=== PATIENT | male | born 1950 | race Caucasian/White ===

== ENCOUNTER → 2019-01-25 | Day surgery (SDC) | payer MEDICARE ==
--- NOTE | 2019-01-21 14:45 | Diagnostic Imaging Report ---
Chest, 2 views, 01/21/2019. History: Preop, cyst removal. Comparison: None available. Findings: The cardiomediastinal silhouette and pulmonary vasculature are within normal limits. There is tortuosity of the descending thoracic aorta. The lungs are clear without evidence of consolidation or pleural effusion. Right shoulder prosthesis is present. Degenerative changes are present throughout the thoracic spine. There are no acute osseous or soft tissue abnormalities. Impression: No acute cardiopulmonary abnormality. Signed by: Jarvis Mercedes on 01/21/2019 2:42 PM
[~2019-01-25] MED LIST: BUPIVACAINE 0.25% 30ML SDV INJ ONE; CEFAZOLIN SOD 1 GM/NS 50ML 100 ML IV ONE; DEXAMETHASONE SOD PHOS INJ 4 MG/ML VIAL ONE; FENTANYL CITRATE/PF 100MCG/2 ML INJ ONE; INSULIN REGULAR, HUMAN 100 UNIT/1 ML 3ML VIAL ONE; LIDOCAINE HCL 2% LOCAL INJ 5 ML SDV VIAL INJ ONE; METFORMIN HCL500 MG PO; MIDAZOLAM HCL 2 MG/2 ML VIAL ONE; ONDANSETRON HCL INJ 2MG/ML 2ML 2 MG/ML VIAL ONE; PROPOFOL IV EMULSION 10 MG/ML 20 ML VIAL ONE; SEVOFLURANE INHAL SOLN 250 ML PEN BTL ONE
--- OUTSIDE RECORDS SUMMARY | 2019-01-25 08:53 | XMS REPORT ---
[facility] Address Unknown Phone Unavailable Care Team Providers Care College Administrator Name Role Phone Francy GARCIA Unavailable Unavailable Payers Payer Name Policy Type Policy Number Effective Date Expiration Date Problems This patient has no known problems. Allergies, Adverse Reactions, Alerts Allergy Name Allergy Type Status Severity Reaction(s) Onset Date Inactive Date Treating Clinician Comments No Known Allergies DA Active U 2017-09-11 00:00:00 Medications This patient has no known medications. Results Test Description Test Time Test Comments Text Results Atomic Results Result Comments CHEST 2 VIEWS 2019-01-21 14:41:00 [place] [address] Patient Name: FE LEOS MR #: [id number] : 1950 Age/Sex: 69/M Req #: [id number] Adm Physician: Ordered by: JACKSON GARCIA MD Report #: [id number] Location: OR Room/Bed: Procedure: [id number] DX/CHEST 2 VIEWS Exam Date: 01/21/19 Exam Time: 1410 REPORT STATUS: Signed Chest, 2 views, 01/21/2019. History: Preop, cyst removal. Comparison: None available. Findings: The cardiomediastinal silhouette and pulmonary vasculature are within normal limits. There is tortuosity of the descending thoracic aorta. The lungs are clear without evidence of consolidation or pleural effusion. Right shoulder prosthesis is present. Degenerative changes are present throughout the thoracic spine. There are no acute osseous or soft tissue abnormalities. Impression: No acute cardiopulmonary abnormality. Signed by: Jarvis Mercedes on 01/21/2019 2:42 PM Dictated By: JARVIS MERCEDES MD [id number] Transcribed By: ADALID on 01/21/19 1442 COPY TO: JACKSON GARCIA MD
--- NOTE | 2019-01-25 15:09 | Operative Report ---
DATE OF PROCEDURE: 01/25/2019 SURGEON: Gerardo Restrepo MD PREOPERATIVE DIAGNOSIS: Infected back mass. POSTOPERATIVE DIAGNOSIS: Infected back mass. PREOPERATIVE INDICATION: Remove disease, prevent septic complications. PROCEDURE: Wide local excision of an infected back mass, 6 cm in size. ANESTHESIA: General. POLICE RESERVES COMMANDER: Emiliano Servin, surgical garment assembler. FLUIDS: As per anesthesia. ESTIMATED BLOOD LOSS: 25 mL. DRAINS: None. COMPLICATION: None. SPECIMEN: 6 cm back mass. GRAFTS: None. FINDINGS: Infected 6 cm cystic mass in the back. PROCEDURE IN DETAIL: The patient was brought to the operating room and was intubated under general endotracheal anesthesia. He was positioned prone with all pressure points were appropriately padded. A preprocedure pause was performed identifying the patient, use of preop antibiotics, intended procedure, and staff surgeon. After he was sterilely prepped and draped, an elliptical incision about 7 cm in length was carried out and down to the level of the fascia layer, the mass was completely excised with a healthy rim of tissue circumferentially. There was purulent material as well as a fibrotic reaction because of the mass. The mass was sent to pathology. The wound was irrigated with saline. Hemostasis was verified. The wound was partially closed from either edge with 2-0 nylon suture in a vertical mattress fashion and packed in the middle with saline-soaked Kerlix gauze with sterile dry dressing on top. The patient tolerated the procedure well. Type of wound is type 4, dirty. Gerardo Restrepo MD [facility] [place]/MODL /[id number]
[2019-01-25 15:15] VITALS: BP 137/71
== END | disposition home or self-care (01) ==
LOC: OR 08:51
PROVIDERS: ATTEND Surgery
DX: L72.0 Epidermal cyst (principal); J44.9 Chronic obstructive pulmonary disease, unspecified; G47.33 Obstructive sleep apnea (adult) (pediatric); E11.9 Type 2 diabetes mellitus without complications; F17.210 Nicotine dependence, cigarettes, uncomplicated; G62.9 Polyneuropathy, unspecified; G57.93 Unspecified mononeuropathy of bilateral lower limbs; Z88.6 Allergy status to analgesic agent; Z01.810 Encounter for preprocedural cardiovascular examination; Z01.818 Encounter for other preprocedural examination; Z79.84 Long term (current) use of oral hypoglycemic drugs
CPT/HCPCS: 21936; 36415; 71046; 82948; 84295; 88304; 93005; J0690; J1100; J2001; J2250; J2405; J2704; J3010; J1817